=== PATIENT | male | born 1975 | race Caucasian/White ===

== ENCOUNTER → 2017-02-24 | Outpatient (REF) | payer OTHER ==
[2017-02-24 10:37] LABS: PROGRESSIVE MOTILITY (a) 8 % (>=32)
[2017-02-24 10:38] LABS: % NORMAL FORMS < 4 % (>=4); IMMOTILITY 85 %; NON PROGRESSIVE MOTILITY (c) 7 %; SPERM# 43.2 M/Ejac (33-46); TOTAL FUNCTIONAL 0.3 M/Ejac.; TOTAL MOTILITY 15 % (>=40); TOTAL PROGRESSIVE SPERM 3.3 M/Ejac.
== END ==
LOC: M LAB REF 09:19
DX: Z31.41 Encounter for fertility testing (principal)